=== PATIENT | female | born 1955 | race Caucasian/White ===

== ENCOUNTER 2016-10-13 15:05 | Emergency (ER) | payer MEDICARE ==
[~2016-10-13] VITALS: Ht 157.5 cm; Wt 68.0 kg
[~2016-10-13 15:05] MED LIST: CLONAZEPAM1 M2 PO; PREDNISONE10 M2 PO
--- NOTE | 2016-10-13 15:28 | ED CARDIAC/CP/PALPITATIONS ---
History of Present Illness General Chief Complaint: Chest Pain Stated Complaint: CHEST PAIN Source: patient Exam Limitations: no limitations Allergies Coded Allergies: amoxicillin (UPSET STOMACH 10/06/16) Reconcile Medications Aspirin (Aspirin*) 81 MG TAB.CHEW 1 TAB PO DAILY HEART DISEASE (Reported) Nitroglycerin (Nitrostat) 0.4 MG TAB.SUBL 1 TAB SL AD PRN CHEST PAIN 1st sign of attack; may repeat every 5 minutes until relief; if pain persists after 3 tablets in 15 minutes, prompt medical att Triage Note: 61 YO FEMALE TO TRIAGE C/O L SIDED CHEST PAIN SINCE LAST NIGHT. STATES SHE HAS "BAD HEART VALVLES" AND IS DUE FOR A CATH. 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 C/O SOB. DENIES ABD PAIN. EKG DONE ON ARRIVAL Triage Nurses Notes Reviewed? yes HPI: This is a 61-year-old female who presents here with chief complaint of chest pain on and off all day long. She states the episodes happen every 30 minutes and woke her from sleep. She felt short of breath with it. Patient has been admitted multiple times in the last year for similar symptoms. She was recently admitted to the hospital in ER, was told that she had a PFO, TR, MRI and an aneurysm in her atrial septum. She states that they wanted to do surgery. Waiting for her to have cardiac catheterization. When results were shown to me a reported normal mitral valve, normal EF, positive PFO and possible HIDA years him. Patient states that she is only on aspirin at home. She's once nitroglycerin from her doctors. They do not give it to her. She is a rescheduled for Cardiac catheterization at the end of the month. She also recently stopped Adderall 2 weeks ago abruptly after being on it for 11 years when she found out that she had some abnormality in her heart. She states that initially she was very tired but now is starting to feel better. She just still report feeling anxious. (EDUIN CASTILLO,DONNY) Vital Signs & Intake/Output Vital Signs & Intake/Output Vital Signs Date Time Temp Pulse Resp B/P B/P Pulse O2 O2 Flow FiO2 Mean Ox Delivery Rate 10/13 1934 98.3 94 18 106/59 92 Room Air 10/13 1614 Room Air 10/13 1521 97.1 103 18 134/92 97 Room Air Past History Travel History Traveled to [place] past 21 day No Medical History Any Pertinent Medical History? 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 No (DONNY DENNY MD) Review of Systems Review of Systems Constitutional: Denies: chills, fever. EENTM: Reports: no symptoms. Respiratory: Reports: see HPI, short of breath. Denies: cough, sputum production. Cardiovascular: Reports: chest pain, palpitations. GI: Reports: no symptoms. Genitourinary: Reports: no symptoms. Musculoskeletal: Reports: no symptoms. Skin: Reports: no symptoms. Neurological/Psychological: Reports: anxiety. Hematologic/Endocrine: Denies: bruising, bleeding, polyuria, polydipsia. Immunologic/Allergic: Reports: no symptoms. All Other Systems: Reviewed and Negative (DONNY DENNY MD) Physical Exam Physical Exam General Appearance: well developed/nourished, alert, awake, anxious, mild distress Head: atraumatic, normal appearance Eyes: Bilateral: normal appearance, PERRL, EOMI. Ears, Nose, Throat: normal pharynx, normal ENT inspection, hearing grossly normal Neck: normal inspection, supple, full range of motion Respiratory: normal breath sounds, chest non-tender, no respiratory distress Cardiovascular: regular rate/rhythm Peripheral Pulses: 2+ radial (R), 2+ radial (L) Gastrointestinal: normal bowel sounds, soft, non-tender Extremities: normal inspection, normal capillary refill, normal range of motion, no edema Neurologic/Psych: no motor/sensory deficits, awake, alert, oriented x 3 Skin: intact, normal color, warm/dry Core Measures ACS in differential dx? Yes ASA ordered for poss ACS? TAKEN PULP GRINDER Severe Sepsis Present: No Septic Shock Present: No (DONNY DENNY MD) Progress Differential Diagnosis: AMI, aortic dissection, myocarditis, pericarditis, pneumonia, pneumothorax, PSVT, pulmonary embolism, unstable angina Diagnostic Imaging: Viewed by Me: Radiology Read. Discussed w/RAD: Radiology Read. CXR Impression: PATIENT: HELEN RON PRESENT AGE: 61 PATIENT ACCOUNT NO: [id number] : 55 LOCATION: [facility] ([place]) ORDERING PHYSICIAN: DONNY DENNY MD SERVICE DATE: 10/13/16-1535 EXAM TYPE: RAD - XRY -PORTABLE CHEST XRAY EXAMINATION: XR PORTABLE CHEST CLINICAL INFORMATION: Rule out CHF. PFO. Atrial septal aneurysm. Due for cardiac catheterization. COMPARISON: None TECHNIQUE: Portable frontal view of the chest was obtained. FINDINGS: No airspace opacities or pleural effusions are seen. The cardiomediastinal silhouette is normal. No acute osseous abnormality is seen. IMPRESSION: No acute process. 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 < Electronically signed in Other Vendor System> SIGNED BY: JADE GAYTAN MD 10/13/16 1611 Initial ED EKG: NSR, nonspecific ST T wave chg Hand-Off Endorsed To: JADE STROUD MD Endorsed Time: 1920 Pending: EKG, other (TROPONIN) (EDUIN CASTILLO,DONNY) Plan of Care: Orders Procedure Date/time Status Regular Diet 10/14 B Active TROPONIN LEVEL 10/13 1900 Complete EKG 10/13 1900 Active Telemetry/Dextrine Mixer 10/13 1536 Active TROPONIN LEVEL 10/13 1536 Complete PARTIAL THROMBOPLASTIN TIME 10/13 1536 Complete PROTHROMBIN TIME 10/13 1536 Complete COMPREHENSIVE METABOLIC PANEL 10/13 1536 Complete CBC WITHOUT DIFFERENTIAL 10/13 1536 Complete EKG 10/13 1507 Active Laboratory Tests 10/13/16 1927: Troponin I < 0.01 10/13/16 1540: Anion Gap 9, Estimated GFR > 60, BUN/Creatinine Ratio 21.4, Glucose 90, Calcium 9.8, Total Bilirubin 0.4, AST 27, ALT 38, Alkaline Phosphatase 129 H, Troponin I < 0.01, Total Protein 7.6, Albumin 4.3, Globulin 3.3, Albumin/Globulin Ratio 1.3, PT 11.6, INR 1.11, APTT 26, CBC w Diff NO MAN DIFF REQ, RBC 4.72, MCV 92.1, MCH 31.2 H, RDW 13.2, MPV 8.6, Gran % 55.8, Lymphocytes % 38.5, Monocytes % 3.5 , Eosinophils % 2.0, Basophils % 0.2, Absolute Granulocytes 5.2, Absolute Lymphocytes 3.6 H, Absolute Monocytes 0.3, Absolute Eosinophils 0.2, Absolute Basophils 0, PUBS MCHC 33.9 Comments: Patient has been updated on lab results. Patient is very concerned that she can get the chest pressure again and she is requesting a prescription for nitroglycerin to use if she gets chest pressure. Patient will call her hydraulic and plumbing installer in the morning. Questions have been answered. (LUANNE CASTILLO,JADE Malin) Departure Departure Condition: Stable Clinical Impression Primary Impression: Chest pain Referrals: PATIENT HAS NO PRIMARY CARE DR (PCP/Family) Departure Forms: Customer Survey General Discharge Information (DONNY DENNY MD) Departure Disposition: HOME OR SELF CARE Additional Instructions: CALL YOUR COSTUMER ASSISTANT IN THE MORNING RETURN FOR ANY CONCERNS USE NITRO UP TO 3 TIMES EVERY 5 MINUTES NEEDED FOR CHEST PRESSURE, CALL 911 IF YOU STILL HAVE CHEST PAIN/PRESSURE AFTER THE NITRO. Prescriptions: Current Visit Scripts Nitroglycerin (Nitrostat) 1 TAB SL AD PRN CHEST PAIN #25 TAB 1st sign of attack; may repeat every 5 minutes until relief; if pain persists after 3 tablets in 15 minutes, prompt medical att (LUANNE CASTILLO,JADE Malin) Critical Care Note Critical Care Note Critical Care Time: non-applicable (DONNY DENNY MD)
[2016-10-13 15:57] LABS: ABSOLUTE BASOPHIL COUNT 0 /CUMM (0.0-0.2); ABSOLUTE EOSINOPHIL COUNT 0.2 /CUMM (0.0-0.7); ABSOLUTE GRANULOCYTE CT 5.2 /CUMM (1.4-6.5); ABSOLUTE LYMPH COUNT 3.6 /CUMM (1.2-3.4); ABSOLUTE MONOCYTE COUNT 0.3 /CUMM (0.10-0.60); BASOPHIL % 0.2 % (0.0-2.0); GRANULOCYTE % 55.8 % (42.2-75.2); HEMATOCRIT 43.5 % (37-47); MEAN CORPUSCULAR HGB 31.2 PG (27.0-31.0); MEAN CORPUSCULAR HGB CONC 33.9 G/DL (33.0-37.0); MEAN CORPUSCULAR VOLUME 92.1 FL (81.0-99.0); MEAN PLATELET VOLUME 8.6 FL (7.4-10.4); PLATELET COUNT 296 /CUMM (130-400); RBC DISTRIBUTION WIDTH 13.2 % (11.5-14.5); RED BLOOD CELL CT 4.72 /CUMM (4.20-5.40)
[2016-10-13 16:06] LABS: PT 11.6 SEC (9.4-12.5); PTT 26 SEC (25-37)
--- NOTE | 2016-10-13 16:11 | RADIOLOGY REPORT ---
EXAMINATION: XR PORTABLE CHEST CLINICAL INFORMATION: Rule out CHF. PFO. Atrial septal aneurysm. Due for cardiac catheterization. COMPARISON: None TECHNIQUE: Portable frontal view of the chest was obtained. FINDINGS: No airspace opacities or pleural effusions are seen. The cardiomediastinal silhouette is normal. No acute osseous abnormality is seen. IMPRESSION: No acute process.
[2016-10-13] MEDS ORDERED: ASPIRIN81 M4 PO (16:15)
[2016-10-13 16:18] LABS: WHITE BLOOD CELL COUNT 9.3 /CUMM (4.8-10.8)
[2016-10-13 19:34] VITALS: BP 106/59
[2016-10-13] MEDS ORDERED: NITROSTAT0.4 M1 SL (20:25)
== END 2016-10-13 20:37 ==
LOC: ERH 15:05
PROVIDERS: Emergency Medicine
DX: R07.9 Chest pain, unspecified (principal)
CPT/HCPCS: 93005; 93010